=== PATIENT | male | born 1990 | race Caucasian/White ===

== ENCOUNTER 2017-10-05 14:42 | Emergency (ER) | payer SELFPAY ==
[~2017-10-05] VITALS: Ht 170.2 cm; Wt 81.8 kg
[2017-10-05 14:48] VITALS: Ht 170.2 cm; Wt 81.8 kg
[2017-10-05] MEDS ORDERED: AMOXICILLIN500 M1 PO (15:48)
[2017-10-05 16:55] VITALS: BP 127/90
== END 2017-10-05 16:43 | disposition home or self-care (01) ==
LOC: D.ER 14:42
DX: J03.90 Acute tonsillitis, unspecified (principal); H66.91 Otitis media, unspecified, right ear; H92.01 Otalgia, right ear

== ENCOUNTER 2019-07-13 19:58 | Emergency (ER) | payer SELFPAY ==
[~2019-07-13] VITALS: Ht 170.2 cm; Wt 86.4 kg
[~2019-07-13 19:58] MED LIST: AMOXICILLIN500 M1 PO
[2019-07-13 20:48] VITALS: Ht 170.2 cm; Wt 86.4 kg
[2019-07-13] MEDS ORDERED: NAPROSYN500 MG PO (22:36)
[2019-07-13] MEDS ORDERED: CLINDAMYCIN HC300 MG PO (22:36)
[2019-07-13 22:58] VITALS: BP 125/77
== END 2019-07-13 22:58 | disposition home or self-care (01) ==
LOC: D.ER 19:58
DX: L02.11 Cutaneous abscess of neck (principal)